=== PATIENT | male | born 1985 | race Caucasian/White ===

== ENCOUNTER 2018-12-15 12:40 | Emergency (ER) | payer OTHER ==
[2018-12-15] MEDS ORDERED: Tetan/Diph/Pertus SYR(Tdap)* 0.5 ML SYR(BOOSTRIX) use SYR IM ONE (13:58)
[2018-12-15] MEDS ORDERED: Lidocaine 1% INJ* 10 MG/ML 30 ML SDV INJ ONE (13:59)
--- NOTE | 2018-12-15 14:05 | ED ---
Laceration/Wound HPI - HPI Summary HPI Summary: This patient is a 33 year old M presenting to [facility] with a chief complaint of laceration on second digit of left finger prior to arrival. Pt cut finger using Exacto knife. Pt cannot remember the last time he got a tetanus shot. He has had skin grafts. Medications reviewed. Allergies noted - History of Current Complaint Stated Complaint: LAC LT HAND PER PT Time Seen by Provider: 12/15/18 13:52 Hx Obtained From: Patient Mechanism of Injury: Sharp/Blunt Trauma Onset/Duration: Sudden Onset, Still Present Aggravating: Nothing Alleviating: Nothing Timing: Constant Onset Severity: Moderate Current Severity: Moderate Pain Intensity: 4 Pain Scale Used: 0-10 Numeric Associated Signs & Symptoms: Redness, Pain - Allergy/Home Medications Allergies/Adverse Reactions: Allergies Allergy/AdvReac Type Severity Reaction Status Date / Time No Known Allergies Allergy Verified 12/15/18 12:48 PMH/Surg Hx/FS Hx/Imm Hx Sensory History: Denies: Hx Legally Blind Opthamlomology History: Denies: Hx Legally Blind EENT History: Denies: Hx Deafness - Surgical History Surgery Procedure, Year, and Place: Skin grafts Infectious Disease History: No Infectious Disease History: Denies: Traveled Outside the [place] in Last 30 Days - Family History Known Family History: Negative: Hypertension, Diabetes - Social History Occupation: Employed Full-time Alcohol Use: None Substance Use Type: Reports: None Smoking Status (MU): Never Smoked Tobacco Review of Systems Negative: Fever Positive: Other - laceration All Other Systems Reviewed And Are Negative: Yes Physical Exam - Summary Physical Exam Summary: Constitutional: Well-developed, Well-nourished, Alert. (-) Distressed Skin: Warm, Dry HENT: Normocephalic; Atraumatic Eyes: Conjunctiva normal Neck: Musculoskeletal ROM normal neck. (-) JVD, (-) Stridor, (-) Tracheal deviation Cardio: Rhythm regular, rate normal, Heart sounds normal; Intact distal pulses; The pedal pulses are 2+ and symmetric. Radial pulses are 2+ and symmetric. (-) Murmur Pulmonary/Chest wall: Effort normal. (-) Respiratory distress, (-) Wheezes, (-) Rales Abd: Soft, (-) tenderness, (-) Distension, (-) Guarding, (-) Rebound Musculoskeletal: (-) Edema; Left second digit 3 cm laceration between DIP and PIP joint on palmar aspect, full Rom and cap reflux in 2 sec. Lymph: (-) Cervical adenopathy Neuro: Alert, Oriented x3 Psych: Mood and affect Normal Triage Information Reviewed: Yes Vital Signs On Initial Exam: Initial Vitals Temp Pulse Resp BP Pulse Ox 98.4 F 72 18 151/77 99 12/15/18 12:47 12/15/18 12:47 12/15/18 12:47 12/15/18 12:47 12/15/18 12:47 Vital Signs Reviewed: Yes Procedures - Laceration/Wound Repair 1 Location: upper extremity Anesthesia: Digital, .5%, Lido Length, Depth and Shape: 3 cm Laceration/Wound Explored: clean Suture Type: Prolene Number of Sutures: 5 Diagnostics - Vital Signs Vital Signs Temp Pulse Resp BP Pulse Ox 12/15/18 12:47 98.4 F 72 18 151/77 99 - Laboratory Lab Statement: Any lab studies that have been ordered have been reviewed, and results considered in the medical decision making process. Re-Evaluation - Re-Evaluation First Eval Re-Evaluation Time: 14:20 Comment: Laceration repair Laceration Repair Course/Dx - Course Course Of Treatment: Patient is here with a laceration to his finger. Patient has full range of motion of his finger with no concerns for tendon laceration. Patient was given tetanus here. Patient had repair of his laceration. - Clinical Impression Provider Diagnoses: Laceration Discharge ED - Sign-Out/Discharge Documenting (check all that apply): Patient Departure - Discharge Patient Received Moderate/Deep Sedation with Procedure: No - Discharge Plan Condition: Stable Disposition: HOME Patient Education Materials: Laceration (ED) Referrals: [facility] [Outside] - 2 Weeks Additional Instructions: PLEASE RETURN TO EMERGENCY DEPARTMENT IF THERE IS AN REDNESS, PUS OR YOU DEVELOP A FEVER. Please follow up with your primary care physician or return to ED in 10-14 days to get stitches removed. - Billing Disposition and Condition Condition: STABLE Disposition: Home - Attestation Statements Document Initiated by Scribe: Yes Documenting Scribe: Berenice Virk Provider For Whom Scribe is Documenting (Include Credential): Chano Bailey MD Scribe Attestation: Berenice Rios, scribed for Chano Bailey MD on 12/15/18 at 1530. Scribe Documentation Reviewed: Yes Provider Attestation: The documentation as recorded by the eugeneibe, Berenice Virk accurately reflects the service I personally performed and the decisions made by me, Chano Bailey MD Status of Scribe Document: Viewed
[2018-12-15 15:02] VITALS: BP 128/89
== END 2018-12-15 15:02 | disposition home or self-care (01) ==
LOC: ED 12:40
DX: S61.211A Laceration without foreign body of left index finger without damage to nail, initial encounter (principal); W26.0XXA Contact with knife, initial encounter; Y92.9 Unspecified place or not applicable; Y99.0 Civilian activity done for income or pay; Z23 Encounter for immunization
CPT/HCPCS: 12002; 90471; 90715; 99281